=== PATIENT | male | born 1960 | race African-American/Black ===

== ENCOUNTER 2022-02-25 09:33 | Emergency (ER) | payer OTHER ==
[2022-02-25] MEDS ORDERED: Ibuprofen 200 MG TAB ONE (10:03)
[2022-02-25 10:32] LABS: Bilirubin Negative (Negative); Blood, Urine Small (Negative); Clarity Clear (Clear); Glucose, Urine (Dipstick) Negative (Negative); Ketone, Urine Negative (Negative); Leukocyte Negative (Negative); Nitrite Negative (Negative); Protein, Urine (Dipstick) Negative (Neg-Trace); Specific Gravity, Urine 1.025 (1.005-1.030); pH, Urine 5.5 (5.0-9.0)
[2022-02-25 10:39] LABS: Bacteria/HPF Rare-Few HPF (None Seen); Mucous/LPF 1+ LPF (<2+); RBC/HPF 0-3 HPF (0-3); Squamous Epithelial 0-3 HPF (0-3); WBC/HPF 0-3 HPF (0-3)
== END 2022-02-25 11:19 | disposition home or self-care (01) ==
LOC: NAV ERS 09:33
DX: E86.9 Volume depletion, unspecified (principal); F17.210 Nicotine dependence, cigarettes, uncomplicated
CPT/HCPCS: 74176; 81003; 81015

== ENCOUNTER 2022-12-23 12:56 | Emergency (ER) | payer OTHER ==
[2022-12-23] MEDS ORDERED: Ibuprofen 200 MG TAB ONE (13:36)
[2022-12-23] MEDS ORDERED: Acetaminophen 500 MG TAB ONE (13:36)
== END 2022-12-23 13:39 | disposition home or self-care (01) ==
LOC: NAV ERS 12:56
DX: S46.912A Strain of unspecified muscle, fascia and tendon at shoulder and upper arm level, left arm, initial encounter (principal); F17.210 Nicotine dependence, cigarettes, uncomplicated; W17.89XA Other fall from one level to another, initial encounter